=== PATIENT | female | born 1970 | race Caucasian/White ===

== ENCOUNTER 2024-05-21 12:43 | Outpatient (CLI) | payer BC, SELFPAY | END 2024-05-21 12:44 | disposition home or self-care (01) | PROVIDERS: PCP Internal Medicine; Visit Provider Internal Medicine | DX: E03.9 Hypothyroidism, unspecified (principal); E04.1 Nontoxic single thyroid nodule | CPT/HCPCS: 76536 ==

== ENCOUNTER 2024-10-22 15:31 | Outpatient (CLI) | payer BC, SELFPAY ==
--- OUTSIDE RECORDS SUMMARY | 2024-10-22 15:38 | XMS_ITS | Clinical Summary ---
Author Organization [facility] Address [address] [place] [address] Phone Care Team Providers Care Ore Mixer Name Role Phone Isael Barnes MD Primary Care Provider [phone] Allergies No known active allergies Medications otherIndications :boric acid suppository 2x per week by Other route. Indications: boric acid suppository 2x per week Active topiramate (TOPAMAX) 25 MG TabletIndication s:Chronic migraine without aura without status migrainosus, not intractable Take 1 Tab by mouth nightly. 90 Tab 3 9 Active sertraline (ZOLOFT) 100 MG TabletIndication s:Anxiety and depression Take 1 Tab by mouth daily. 90 Tab 2 0 Active levothyroxine (SYNTHROID) 75 MCG TabletIndication s:Hypothyroidism , unspecified type Take 1 Tab by mouth daily. 90 Tab 2 0 Active Lactobacillus (PROBIOTIC ACIDOPHILUS) Capsule Take 1 Cap by mouth daily. Active diphenhydrAMINE (BENADRYL ALLERGY) 25 MG Tablet Take 50 mg by mouth every 6 hours as needed. Active Rizatriptan Benzoate 10 MG TabletIndication s:Chronic migraine without aura without status migrainosus, not intractable TAKE 1 TABLET BY MOUTH ONCE NEEDED FOR HEADACHE FOR UP TO 1 DOSE. MAY REPEAT IN 2 HOURS IF NEEDED 9 Tab 11 0 Active Active Problems Problem Noted Date Diagnosed Date Anxiety and depression 01/02/2017 IC (interstitial cystitis) 05/01/2015 Overview (06/03/2015): 06/03/2015 cysto, brp, hydro: 500ml, 3/5 Mild IC Migraine 01/21/2009 Hypothyroidism 01/21/2009 Resolved Problems Problem Noted Date Diagnosed Date Resolved Date Depression 05/14/2014 01/02/2017 Anxiety 01/21/2009 01/02/2017 Encounters Date Type Department Care Team Description 08/09/2024 1:51 PM CDT - 08/09/2024 11:59 PM CDT Hospital Encounter [facility] [address] [place] [address] Isael Barnes MD Discharge Disposition: Discharged to home or Selfcare 08/08/2024 Travel from Last 3 Months Immunizations Immunization Administration Dates Next Due PUR FLU W/PRES AGE 3+ FULL IM 01/21/2009 Family History Medical History Relation Name Comments Cancer Father lung Cancer Maternal Grandfather throat Colon Cancer Maternal Grandmother No Known Problems Mother Asthma Other son Cancer Other daughter No Known Problems Paternal Grandfather No Known Problems Paternal Grandmother Breast Cancer Neg Hx Ovarian Cancer Neg Hx Relation Name Status Comments Father Alive Maternal Grandfather Maternal Grandmother Mother Alive Other Alive Paternal Grandfather Paternal Grandmother Social History Tobacco Use Types Packs/Day Years Used Date Smoking Tobacco: Never Smokeless Tobacco: Never Tobacco Cessation:Counseling Given: No Alcohol Use Standard Drinks/Week Comments Yes 0 (1 standard drink = 0.6 oz pur e alcohol) rare PHQ-2 Answer Date Recorded PHQ-2 Score 1 01/25/2019 Sexually Active Control Partners Comments Yes Male Comments No Sex and Gender Information Value Date Recorded Sex Assigned at Not on file Legal Sex Female 2:44 AM [employer] Gender Identity Not on file Sexual Orientation Not on file Last Filed Vital Signs Vital Sign Reading Time Taken Comments Blood Pressure 119/79 04/22/2023 4:15 PM [employer] Pulse 67 04/22/2023 4:15 PM [employer] Temperature 36.8 C (98.3 F) 04/22/2023 2:18 PM [employer] MANAGER Respiratory Rate 13 04/22/2023 4:15 PM [employer] MANAGER Oxygen Saturation 99% 04/22/2023 4:15 PM [employer]ING MANAGER Inhaled Oxygen Concentration - - Weight 57.6 kg (127 lb) 04/22/2023 2:18 PM [employer] MANAGER Height 167.6 cm (5' 6) 04/22/2023 2:18 PM [employer]NAGER Body Mass Index 20.5 04/22/2023 2:18 PM [employer]GER Plan of Treatment Health Maintenance Due Date Last Done Comments Hepatitis C Virus (HCV) Screening 1970 Hepatitis B Immunization (1 of 3 - 19+ 3-dose series) 05/29/1991 Cologuard 2017 Immunochemical Fecal Occult Blood 2017 Pneumococcal Immunization (50+ years) (1 of 1 - PCV) 2022 Zoster Immunization (1 of 2) 2022 SARS-COV-2 Immunization ( - 2023- season) 2023 08/05/2020, 07/15/2020 Influenza Immunization (#1) 2024 01/21/2009 Mammogram 08/09/2025 08/09/2024, 05/20, 09/01/2021, Additional history exists Colonoscopy 06/28/2027 06/27/2017 Colorectal Cancer Screening 06/28/2027 Respiratory Syncytial Virus (RSV) Immunization (Adult) (1 - 1-dose 75+ series) 05/29/2047 DTaP/Tdap/Td Immunization Discontinued 10/01/2020 TdaP Immunization Completed 10/01/2020 Discussion re Starting/Frequency of Mammograms Discontinued 08/09/2024, 06/17/2023, 09/01/2021, Additional history exists Human Papillomavirus (HPV) Immunization Aged Out No longer eligible based on patient's age to complete this topic Meningococcal Immunization (ACWY) Aged Out No longer eligible based on patient's age to complete this topic Rotavirus Immunization Aged Out No lo nger eligible based on patient's age to complete this topic Procedures Procedure Name Priority Date/Time Associated Diagnosis Comments MORGAN SCREENING BILATERAL DIGITAL W CAD W ARI Routine 08/09/2024 2:17 PM CDT Encounter for screening mammogram for malignant neoplasm of breast HM COLONOSCOPY Routine 06/27/2017 from Last 3 Months or Most Recently Relevant to Health Maintenance Results * MORGAN SCREENING BILATERAL DIGITAL W CAD W ARI (08/09/2024 2:17 PM CDT) Anatomical Region Laterality Modality breast Bilateral Mammography 08/09/2024 2:17 PM CDT Impressions 08/09/2024 3:37 PM CDT Impression: No mammographic evidence of malignancy. BI-RADS Category: 1 - Negative Recommendations: Screening Mammogram in 1 year Laterality: Bilateral The patient will be notified of the results by lay letter. Narrative 08/09/2024 3:37 PM CDT DICTATING PHYSICIAN: Jens Carrillo M.D. - [facility] Examination: Bilateral digital screening mammography with tomosynthesis and computer-aided detection. Clinical Information: Routine screening of a female of age 54 years. Comparison(s): 06/17/2023, 09/01/2021, 12/18/2019, 11/06/2018, 10/31/2017, 09/24/2016. Technique: Routine mammographic views were obtained of both breasts with tomosynthesis. Computer-aided detection was utilized for this exam. Findings: Breast Density: The breasts are heterogeneously dense, which may obscure small masses The pattern and distribution of the glandular tissue are unchanged from the prior exams. No suspicious mammographic findings in either breast. Procedure Note Jens Carrillo MD - 08/09/2024 DICTATING PHYSICIAN: [facility] Examination: Bilateral digital screening mammography with tomosynthesisand computer-aided detection. Clinical Information: Routine screening of a female of age 54 years. Comparison(s): 06/17/2023, 09/01/2021, 12/18/2019, 11/06/2018, 10/31/2017,09/24/2016. Technique: Routine mammographic views were obtained of both breasts withtomosynthesis. Computer-aided detection was utilized for this exam. Findings: Breast Density: The breasts are heterogeneously dense, which may obscuresmall masses The pattern and distribution of the glandular tissue are unchanged fromthe prior exams. No suspicious mammographic findings in either breast. Impression: No mammographic evidence of malignancy. BI-RADS Category: 1 - Negative Recommendations: Screening Mammogram in 1 year Laterality: Bilateral The patient will be notified of the results by lay letter. us Isael Barnes MD IMG MAMMO ORDERABLES Final Re sult * HM COLONOSCOPY (06/27/2017) us Lev Peacock MD PROCEDURE/MINOR SURGICAL OR DERABLES Final Result from Last 3 Months or Most Recently Relevant to Health Maintenance Insurance [facility] Care Teams Ore Mixer Relationship Specialty Start Date End Date Isael Barnes MD [address], [place] [id number] PCP - General Internal Medicine 06/01/21
[2024-10-22 17:08] LABS: Hematocrit 39.7 % (35.0-49.0); Hemoglobin 13.2 g/dL (12.0-15.0); Immature Granulocyte Percent A 0.4 % (0.0-0.0); Lymphocytes Absolute Auto 1.17 K/mm3 (1.10-4.50); Mean Corpuscular HGB Conc 33.2 g/dL (32-36); Mean Corpuscular Hemoglobin 30.5 pg (27.0-31.0); Mean Corpuscular Volume 91.7 fL (78.0-102.0); Nucleated Red Blood Cells Absolute Auto 0.00 K/mm3 (0.00-0.00); Nucleated Red Blood Cells Perc 0.0 % (0-0.0); Platelet Count Result 255 K/mm3 (150-420); Red Blood Count 4.33 M/mm3 (4.20-5.40); White Blood Count 5.5 K/mm3 (4.8-10.8)
[2024-10-22 17:59] LABS: Add Urine Microscopic? NO; Appearance Urine Clear (Clear); Glucose Urine UA Negative (Negative); Leukocyte Esterase Ur Negative (Negative); Nitrate Urine Negative (Negative); Specific Grav Ur 1.010 (1.010-1.020)
[2024-10-22 19:06] LABS: Alanine Aminotransferase 19 U/L (6-35); Albumin Level 4.7 g/dL (3.5-5.1); Alkaline Phosphatase 66 U/L (38-126); Anion Gap 4 mmol/L (4-12); Aspartate Amino Transferase 31 U/L (14-36); Bilirubin,Total 0.5 mg/dL (0.2-1.3); Blood Urea Nitrogen 14 mg/dL (7-17); Calcium 9.6 mg/dL (8.4-10.2); Carbon Dioxide 29 mmol/L (22-30); Chloride 106 mmol/L (98-107); Estimated Glomerular Filt Rate > 60; Glucose 102 mg/dL (65-110); Iron 80 ug/dL (37-170); Osmolality Calculated 288 mOsm/kg (285-295); Potassium 4.4 mmol/L (3.4-5.0); Sodium 139 mmol/L (137-145); Total Protein 6.6 g/dL (6.3-8.2)
[2024-10-22 19:41] LABS: Ferritin 55.20 ng/mL (11.1-264)
[2024-10-22 19:55] LABS: Vitamin B12 859.0 pg/mL (239-931)
[2024-10-24 12:08] LABS: Immunoglobulin A, Qn 88 mg/dL (87-352); Immunoglobulin G, Qn 866 mg/dL (586-1602); Immunoglobulin M, Qn 107 mg/dL (26-217)
[2024-10-25 10:08] LABS: ANA by IFA Rfx Titer/Pattern Negative (.)
== END 2024-10-22 15:32 | disposition home or self-care (01) ==
LOC: CHSLAB 15:36
PROVIDERS: PCP Internal Medicine; Visit Provider Internal Medicine
DX: N39.0 Urinary tract infection, site not specified (principal); R11.0 Nausea; E53.8 Deficiency of other specified B group vitamins; L50.9 Urticaria, unspecified
CPT/HCPCS: 36415; 80053; 81003; 82607; 82728; 82784; 82785; 83520; 83540; 85025; 86038; 86160; 86162; 86340; 86364; 87086